=== PATIENT | female | born 1950 | race American Indian/Alaskan Native ===

== ENCOUNTER 2017-01-25 14:59 | Emergency (ER) | payer OTHER ==
[2017-01-25 15:00] VITALS: BMI 20.2
[2017-01-25 15:04] VITALS: BP 130/72; PULSE 72; RESP 18; TEMP 98.5; O2SAT 99
--- NOTE | 2017-01-25 15:23 | ED PDOC ---
Lower Extremity Pain/Injury Time Seen by Provider: 01/25/17 15:28 Chief Complaint (Nursing): Lower Extremity Problem/Injury Chief Complaint (Provider): Left ankle pain History Per: Patient History/Exam Limitations: no limitations Onset/Duration Of Symptoms: Days (2) Current Symptoms Are (Timing): Still Present Additional Complaint(s): Patient is a 66 y/o female with no significant past medical history presenting to the emergency department for left ankle and foot pain ongoing for two days ago. Reports that as she was walking she tripped over some chairs and injured her left foot. Notes wrapping her foot with an ulisses bandage and applying ice to the area which improved the swelling. Patient also notes being able to put weight on her foot and can ambulate without difficulty. Denies taking any medication for the pain, denies other injuries, or other complaints. PCP: Dr. Sacha Mayer - Ankle/Foot Description Of Injury: Struck Against Object, Other (Tripped) Currently Unable To: Bear Weight Alleviating Factor(s): Ice Therapy, Other (Ulisses bandage) Past Medical History Reviewed: Historical Data, Nursing Documentation, Vital Signs Vital Signs: Last Vital Signs Temp 98.5 F 01/25/17 15:02 Pulse 72 01/25/17 15:02 Resp 18 01/25/17 15:02 BP 130/72 01/25/17 15:02 Pulse Ox 99 01/25/17 15:02 - Medical History PMH: Anxiety, HIV, Hypothyroidism - Surgical History Surgical History: No Surg Hx - Family History Family History: States: Unknown Family Hx - Living Arrangements Living Arrangements: With Family - Social History Current smoker - smoking cessation education provided: No Alcohol: None Drugs: Denies - Home Medications Home Medications: Ambulatory Orders Medication Instructions Recorded Diazepam [Valium] 5 mg PO DAILY 10/24/11 Viamune 200 mg PO BID 10/24/11 Zolpidem Tartrate [Ambien] 10 mg PO HS 10/24/11 lamiVUDine/Zidovudine [Combivir 1 tab PO BID 10/24/11 150 MG-300 MG] Sulfamethoxazole/Trimethopri 1 tab PO BID #20 tab 01/09/14 [Bactrim Ds 800 mg-160 mg] Naproxen [Naprosyn] 500 mg PO BID #20 tab 02/16/14 Ibuprofen [Motrin] 600 mg PO Q8 #30 tab 01/25/17 - Allergies Allergies/Adverse Reactions: Allergies Allergy/AdvReac Type Severity Reaction Status Date / Time abacavir Allergy ANAPHYLAXIS Verified 01/25/17 15:01 Review of Systems ROS Statement: Except As Marked, All Systems Reviewed And Found Negative Musculoskeletal: Positive for: Foot Pain (left ankle pain, laterally) Physical Exam - Reviewed Nursing Documentation Reviewed: Yes Vital Signs Reviewed: Yes - Physical Exam Appears: Positive for: Well, Non-toxic, No Acute Distress Head Exam: Positive for: ATRAUMATIC, NORMAL INSPECTION, NORMOCEPHALIC Skin: Positive for: Normal Color, Warm, Dry Eye Exam: Positive for: Normal appearance Neck: Positive for: Normal Extremity: Positive for: Normal ROM, Tenderness (lateral left foot and dorsum), Swelling (minimal swelling to dorsum of foot.), Other (normal ROM to ankle and foot). Negative for: Calf Tenderness, Deformity Neurologic/Psych: Positive for: Alert, Oriented (x3) - ECG O2 Sat by Pulse Oximetry: 99 (RA) Pulse Ox Interpretation: Normal Medical Decision Making Medical Decision Making: Time: 15:28 Initial impression: Left foot pain Initial plan: Left foot x-ray Xray reviewed by me showing no acute fracture. Patient advised to rest, ice and take Ibuprofen for any pain. May follow up with Ortho or podiatry if symptoms persist ~ Scribe Attestation: Documented by Lian Spaulding, acting as a scribe for DAVID Mesa. Provider Scribe Attestation: All medical record entries made by the Scribe were at my direction and personally dictated by me. I have reviewed the chart and agree that the record accurately reflects my personal performance of the history, physical exam, medical decision making, and the department course for this patient. I have also personally directed, reviewed, and agree with the discharge instructions and disposition. Disposition - Clinical Impression Clinical Impression: Foot sprain - Patient ED Disposition Is Patient to be Admitted: No Counseled Patient/Family Regarding: Studies Performed, Diagnosis, Need For Followup - Disposition Referrals: Podiatry Clinic [Outside] Disposition: Routine/Home Disposition Time: 15:54 Condition: STABLE Additional Instructions: Your xray was normal, no fracture. Please apply ice to area 15 minutes three times a day. Take Motrin as needed for pain every 6 hours, with food to not upset stomach. Follow up with orthopedic if pain persists over one week. Prescriptions: Ibuprofen [Motrin] 600 mg PO Q8 #30 tab Instructions: Foot Sprain (ED) Forms: [facility] (Faroese) - POA Present On Arrival: None
--- NOTE | 2017-01-25 16:16 | RAD ---
PROCEDURE: Left Foot Radiographs. HISTORY: Posttraumatic left foot pain COMPARISON: None. FINDINGS: BONES: Normal. No fracture. JOINTS: Normal. SOFT TISSUES: Normal. OTHER FINDINGS: None. IMPRESSION: No acute findings related to/accounting for the clinical presentation. Concordant results with the preliminary interpretation rendered by the emergency department physician procedure.
== END 2017-01-25 16:04 | disposition home or self-care (01) ==
LOC: H.ER 14:59
DX: S93.602A Unspecified sprain of left foot, initial encounter (principal); X50.9XXA Other and unspecified overexertion or strenuous movements or postures, initial encounter; Y92.89 Other specified places as the place of occurrence of the external cause; E03.9 Hypothyroidism, unspecified; F41.9 Anxiety disorder, unspecified